=== PATIENT | male | born 1955 | race Hispanic/Latino ===

== ENCOUNTER 2024-07-28 06:25 | Emergency (ER) | payer OTHER ==
[2024-07-28] MEDS ORDERED: TETRACAINE HCL 0.5% 4ML OPTH ONE (06:56)
[2024-07-28] MEDS ORDERED: FLUORESCEIN SODIUM 1 MG/WRAP ONE (06:56)
[2024-07-28] MEDS ORDERED: IBUPROFEN 400 MG TAB ONE (07:11)
[2024-07-28] MEDS ORDERED: ACETAMINOPHEN 500 MG TAB ONE (07:11)
--- NOTE | 2024-07-28 07:12 | ER ---
Nurse's Notes [facility] Name: Butch Fried Age: 69 yrs Sex: Male : 1955 Arrival Date: 07/28/2024 Time: 06:25 Bed 7 Private MD: Diagnosis: Acute toxic conjunctivitis, right eye;Acute Chemical conjunctivitis Right eye , Acute right large corneal abrasion Presentation: 07/28 06:32 Chief complaint: Patient states: I PUT FUNGAL MEDICATION IN MY EYES INSTEAD OF THERA ha1 TEARS, EYE PAIN AND EYE REDNESS. 06:32 Coronavirus screen: Client denies travel out of the [place] in the last 14 days. Ebola ha1 Screen: No symptoms or risks identified at this time. Initial Sepsis Screen: Does the patient meet any 2 criteria? No. Patient's initial sepsis screen is negative. Does the patient have a suspected source of infection? No. Patient's initial sepsis screen is negative. Risk Assessment: Do you want to hurt yourself or someone else? Patient reports no desire to harm self or others. 06:32 Method Of Arrival: Ambulatory ha1 06:32 Acuity: MELISSA 3 ha1 Triage Assessment: 06:32 General: Appears uncomfortable, Behavior is calm, cooperative. Pain: Complains of pain ha1 in right eye and left eye Pain does not radiate. Pain currently is 5 out of 10 on a pain scale. Neuro: Level of Consciousness is awake, alert, obeys commands, Oriented to person, place, time, situation. Historical: - Allergies: 07:05 No Known Allergies; ha1 - PMHx: 07:05 Diabetes - NIDDM; Gout; Hypertension; ha1 - Immunization history:: Adult Immunizations up to date. - Infectious Disease History:: Denies. - Social history:: Smoking status: Patient denies any tobacco usage or history of. - Family history:: not pertinent. Screenin:40 [facility] [place] ED Fall Risk Assessment (Adult) History of falling in the last 3 months, rs5 including since admission No falls in past 3 months (0 pts) Confusion or Disorientation No (0 pts) Intoxicated or Sedated No (0 pts) Impaired Gait No (0 pts) Mobility Assist Device Used No (0 pt) Altered Elimination No (0 pt) Score/Fall Risk Level 0 - 2 = Low Risk Oriented to surroundings, Maintained a safe environment. Abuse screen: Denies threats or abuse. Nutritional screening: No deficits noted. Tuberculosis screening: No symptoms or risk factors identified. Assessment: 06:45 General: Appears in no apparent distress. uncomfortable, Behavior is calm, cooperative. rs5 Pain: Complains of pain in right eye Pain currently is 3 out of 10 on a pain scale. Quality of pain is described as aching. Neuro: Level of Consciousness is awake, alert, obeys commands, Oriented to person, place, time, situation. 06:45 Cardiovascular: Patient's skin is warm and dry. Respiratory: Airway is patent rs5 Respiratory effort is even, unlabored, Respiratory pattern is regular, symmetrical. GI: Abdomen is round non-distended, Abd is soft and non tender X 4 quads. : No signs and/or symptoms were reported regarding the genitourinary system. EENT: redness and tearing noted to right eye. Derm: Skin is intact, Skin is pink, warm \T\ dry. Musculoskeletal: Range of motion: intact in all extremities. 07:44 Reassessment: Patient and/or family updated on plan of care and expected duration. Pain rs5 level reassessed. Patient is alert, oriented x 3, equal unlabored respirations, skin warm/dry/pink. Vital Signs: 06:32 BP 142 / 84; Pulse 98; Resp 17 S; Temp 97.8; Pulse Ox 99% on R/A; Weight 106.59 kg; ha1 Height 5 ft. 8 in. ; 07:30 BP 137 / 81; Pulse 80; Resp 17; Pulse Ox 99% on R/A; rs5 06:32 Body Mass Index 35.73 (106.59 kg, 172.72 cm) ha1 [place] Coma Score: 20:07 Eye Response: spontaneous(4). Motor Response: obeys commands(6). Verbal Response: sp4 oriented(5). Total: 15. ED Course: 06:31 Patient arrived in ED. gm2 06:32 Yoan Corona MD is Attending Physician. sp4 06:40 Patient has correct armband on for positive identification. Placed in gown. Bed in low rs5 position. Call light in reach. Side rails up X2. 06:40 Arm band placed on right wrist. rs5 06:40 No provider procedures requiring assistance completed. rs5 07:05 Triage completed. ha1 07:10 Deni Garcia MD is Referral Physician. sp4 07:22 Natan Erickson, RN is Primary Nurse. rs5 07:35 Provided Education on: discharge instructions . rs5 07:40 Patient did not have IV access during this emergency room visit. rs5 Administered Medications: 07:05 Drug: Tetracaine Ophthalmic Drops 0.5 % 1 drops Ophthalmic once Route: Ophthalmic; bm8 Site: both eyes; 07:20 Follow up: Response: No adverse reaction rs5 07:22 Not Given (pt denies painn): mg PO once rs5 07:22 Not Given (Patient Refused): [id number] mg PO once rs5 Medication: 07:04 VIS not applicable for this client. rs5 Outcome: 07:12 Discharge ordered by . sp4 07:40 Discharged to home ambulatory, rs5 07:40 Condition: stable 07:40 Discharge instructions given to patient, family, Instructed on discharge instructions, follow up and referral plans. medication usage, Demonstrated understanding of instructions, follow-up care, medications, 07:42 Patient left the ED. rs5 Signatures: Skye Ridley RN RN ha1 Natan Erickson, RN RN rs5 Yoan Corona MD MD 4 Katelyn Baldwin 2 Chris Benoit RN RN 8
--- NOTE | 2024-07-28 07:12 | EDPHYS ---
Physician Documentation [facility] Name: Butch Fried Age: 69 yrs Sex: Male : 1955 Arrival Date: 07/28/2024 Time: 06:25 Bed 7 Private MD: ED Physician Yoan Corona HPI: 07/28 06:32 This 69 yrs old Male presents to ER via Unassigned with complaints of Blurred sp4 Vision, Eye Problem. 20:05 69-year-old male presents with acute right eye pain and irritation. Patient states he sp4 has applied antifungal drops to his right eye by accident. Patient states antifungal drops are made in [place] and used by his as the antifungal remedy.. Historical: - Allergies: 07:05 No Known Allergies; ha1 - PMHx: 07:05 Diabetes - NIDDM; Gout; Hypertension; ha1 - Immunization history:: Adult Immunizations up to date. - Infectious Disease History:: Denies. - Social history:: Smoking status: Patient denies any tobacco usage or history of. - Family history:: not pertinent. ROS: 20:07 Constitutional: Negative for fever, chills, and weight loss, positive right eye pain sp4 redness and irritation. 20:07 All other systems are negative, Exam: 20:07 Visual Acuity: I have reviewed the nursing documentation. sp4 20:07 Constitutional: This is a well developed, well nourished patient who is awake, alert, and in no acute distress. Head/Face: Normocephalic, atraumatic. Eyes: Pupils equal round and reactive to light, extra-ocular motions intact. Lids and lashes normal. Left Cornea within normal limits. Periorbital areas with no swelling, redness, or edema. Right eye exam reveals moderate redness and irritation, signs of acute chemical conjunctivitis also there is moderate to large size corneal abrasion on the inferior portion of the right cornea . No signs of corneal ulceration. The rigth eye was heavily irrigated during examination ENT: Nares patent. No nasal discharge, no septal abnormalities noted. Tympanic membranes are normal and external auditory canals are clear. Oropharynx with no redness, swelling, or masses, exudates, or evidence of obstruction, uvula midline. Mucous membranes moist. Neck: Trachea midline, no thyromegaly or masses palpated, and no cervical lymphadenopathy. Supple, full range of motion without nuchal rigidity, or vertebral point tenderness. Chest/axilla: Normal chest wall appearance and motion. Nontender with no deformity. No lesions are appreciated. Cardiovascular: Regular rate and rhythm with a normal S1 and S2. No gallops, murmurs, or rubs. Normal PMI, no JVD. No pulse deficits. Respiratory: Lungs have equal breath sounds bilaterally, clear to auscultation and percussion. No rales, rhonchi or wheezes noted. No increased work of breathing, no retractions or nasal flaring. Abdomen/GI: Soft, with normal bowel sounds. No distension or tympany. No guarding or rebound. No evidence of tenderness throughout. Back: No spinal tenderness. No costovertebral tenderness. Skin: Warm, dry with normal turgor. Normal color with no rashes, no lesions, and no evidence of cellulitis. MS/ Extremity: Pulses equal, no cyanosis. Neurovascular intact. Full, normal range of motion. Neuro: Awake and alert, GCS 15, oriented to person, place, time, and situation. Cranial nerves II-XII grossly intact. Motor strength 5/5 in all extremities. Sensory grossly intact. Vital Signs: 06:32 BP 142 / 84; Pulse 98; Resp 17 S; Temp 97.8; Pulse Ox 99% on R/A; Weight 106.59 kg; ha1 Height 5 ft. 8 in. ; 07:30 BP 137 / 81; Pulse 80; Resp 17; Pulse Ox 99% on R/A; rs5 06:32 Body Mass Index 35.73 (106.59 kg, 172.72 cm) ha1 [place] Coma Score: 20:07 Eye Response: spontaneous(4). Motor Response: obeys commands(6). Verbal Response: sp4 oriented(5). Total: 15. MDM: 06:52 Medical Screening Exam initiated sp4 20:09 Differential diagnosis: Corneal abrasion of Corneal ulcer of Acute iritis of Chemical sp4 conjunctivitis in Ultraviolet keratitis in. Data reviewed: vital signs, nurses notes. ED course: Right eye was heavily irrigated with saline. Will prescribe tobramycin eyedrops to prevent bacterial superinfection. . 20:10 ED course: Patient was requested to contact Dr. Deni Garcia office on Tuesday for sp4 repeat eye examination.. 07/28 06:55 Order name: Eye Tray; Complete Time: 07:05 sp4 07/28 06:55 Order name: Fluoresene Opth strip; Complete Time: 07:05 sp4 Administered Medications: 07:05 Drug: Tetracaine Ophthalmic Drops 0.5 % 1 drops Ophthalmic once Route: Ophthalmic; bm8 Site: both eyes; 07:20 Follow up: Response: No adverse reaction rs5 07:22 Not Given (pt denies painn): [id number] mg PO once rs5 07:22 Not Given (Patient Refused): [id number] mg PO once rs5 Disposition: 20:10 Chart complete. sp4 Disposition Summary: 07/28/24 07:12 Discharge Ordered Notes: Location: Home sp4 Problem: new sp4 Symptoms: have improved sp4 Condition: Stable sp4 Diagnosis - Acute toxic conjunctivitis, right eye sp4 - Acute Chemical conjunctivitis Right eye , Acute right large corneal abrasion sp4 Followup: sp4 - With: Deni Garcia MD - When: 2 - 3 days - Reason: Recheck today's complaints Discharge Instructions: - Discharge Summary Sheet sp4 - Chemical Conjunctivitis, Adult, [id number] sp4 Forms: - Patient Portal Instructions sp4 Prescriptions: - tobramycin 0.3 % Ophthalmic drops - instill 2 drop OPHTHALMIC route every 4 hours for 7 days; 5 milliliter; sp4 Refills: 0, Product Selection Permitted Signatures: Skye Ridley RN RN ha1 Yoan Corona MD MD sp4 Chris Benoit RN RN bm8 Natan Erickson RN rs5
[2024-07-28 09:19] VITALS: BP 142/84; TEMP 97.8; O2SAT 99
== END 2024-07-28 07:42 | disposition home or self-care (01) ==
LOC: ER 06:25
DX: H10.211 Acute toxic conjunctivitis, right eye (principal); S05.01XA Injury of conjunctiva and corneal abrasion without foreign body, right eye, initial encounter
CPT/HCPCS: 99283